=== PATIENT | male | born 1965 | race American Indian/Alaskan Native ===

== ENCOUNTER 2021-09-01 06:29 | Day surgery (SDC) | payer BC ==
[2021-09-01] MEDS ORDERED: LACTATED RINGERS 1,000 ML IV SCH (08:00)
[2021-09-01] MEDS ORDERED: ONDANSETRON 4 MG/2 ML INJ IV PRN (08:30)
[2021-09-01] MEDS ORDERED: HYDROmorphone 1 MG/1 ML INJ IV PRN ×2 (08:30)
--- NOTE | 2021-09-01 08:31 | Anesthesia Day of Surgery ---
Anesthesia Day of Surgery - Day of Surgery Patient Examined: Yes Patient H&P Reviewed: Yes Patient is NPO: Yes
--- NOTE | 2021-09-01 08:32 | Anesthesia Consultation ---
Anesthesia Consult and Med Hx Date of service: 09/01/21 - Airway Anesthetic Teeth Evaluation: Caps (Missing) ROM Head & Neck: Adequate Mental/Hyoid Distance: Adequate Mallampati Class: Class II Intubation Access Assessment: Good - Pre-Operative Health Status ASA Pre-Surgery Classification: ASA1 Proposed Anesthetic Plan: General - Pulmonary Hx Smoking: No Hx Asthma: Yes ( CHILD ONLY) Hx Respiratory Symptoms: No (Recent ear infection on amox) Hx Sleep Apnea: No (DAMIAN PRE SCREEN LOW RISK) - Cardiovascular System Hx Hypertension: No - Central Nervous System Hx Back Pain: Yes (NECK AND BACK PAIN) Hx Psychiatric Problems: No - Hematic Hx Anemia: No - Other Systems Hx Cancer: No
[2021-09-01] MEDS ORDERED: ceFAZolin/STERILE WATER 2 GM/20 ML SYRINGE IV NR (09:04)
[2021-09-01] MEDS ORDERED: ceFAZolin/Water 2 GM/20 ML 2 GM/20 ML SYRINGE IV ONE (09:05)
[2021-09-01] MEDS ORDERED: fentaNYL 100 MCG/2 ML INJ ONE (09:06)
[2021-09-01] MEDS ORDERED: propofoL 200 MG/20 ML VIAL IV ONE ×2 (09:06→09:22)
[2021-09-01] MEDS ORDERED: LIDOCAINE MPF (2%) 20 MG/1 ML VIAL 5 ML ONE (09:06)
[2021-09-01] MEDS ORDERED: dexAMETHasone 20 MG/5 ML VIAL ONE (09:28)
[2021-09-01] MEDS ORDERED: ONDANSETRON 4 MG/2 ML INJ ONE (09:29)
[2021-09-01] MEDS ORDERED: PHENYLEPHRINE/NS 1,000 MCG/10 ML SYRINGE (OR USE) IV ONE (09:36)
--- NOTE | 2021-09-01 09:58 | Operative Report ---
DATE OF SURGERY: 09/01/2021 PREOPERATIVE DIAGNOSES: 1. Elevated PSA. 2. Family history of prostate cancer. POSTOPERATIVE DIAGNOSES: 1. Elevated PSA. 2. Family history of prostate cancer. PROCEDURE: Transrectal ultrasound of the prostate with biopsy. ATTENDING: Elgin Subramanian MD ASSISTANTS: None. ANESTHESIA: MAC. SPECIMENS: Prostate needle biopsies. DRAINS: None. COMPLICATIONS: None. ESTIMATED BLOOD LOSS: 5 mL INDICATIONS FOR PROCEDURE: The patient is a 55-year-old man with a strong family history of prostate cancer and an elevated PSA. He presents today for prostate needle biopsy. DESCRIPTION OF PROCEDURE IN DETAIL: After induction of suitable sedation and proper positioning and preparation in the dorsal lithotomy position, an ultrasound probe was placed into the rectum. A diagnostic ultrasound was performed. The patient's prostate was 21.7 grams. There were no obvious hypoechoic lesions. Once complete, the prostate needle biopsies were then taken in the usual manner. A total of 12 biopsies were taken. The patient tolerated the procedure well and was taken to the recovery room in stable condition. He will return to the office in 7-10 days for pathology review. TID: [id number] RECEIPT: [id number] PATRICIA/CHEYENNE
[2021-09-01] MEDS ORDERED: WATER FOR IRRIG STERILE 1,500 ML BOTTLE IR ONE (10:05)
--- NOTE | 2021-09-01 11:47 | Ultrasound Report ---
Transrectal Ultrasound HISTORY: ELEVATED PSA. TECHNIQUE: Grayscale ultrasound imaging performed. COMPARISON: None FINDINGS: Transrectal ultrasound guidance was provided by radiology during prostate biopsy by urology . Prostate volume measures 21.7 cc. IMPRESSION: Successful prostate biopsy under ultrasound guidance. Signer Name: Navjot Barajas Jr, MD Signed: 09/01/2021 11:43 AM Workstation Name: [id number]
[2021-09-01 12:04] VITALS: BP 140/80
--- NOTE | 2021-09-01 14:16 | Post Anesthesia Evaluation ---
- Post Anesthesia Evaluation Patient Participated: Yes Airway Patent: Yes Stable Respiratory Function: Yes Nausea/Vomiting: No Temp > 96.8F: Yes Pain Manageable: Yes Adequeate Hydration: Yes Anesthesia Complications: No Block Receding Appropriately: Not Applicable Patient on Ventilator: No
== END 2021-09-01 11:40 | disposition home or self-care (01) ==
LOC: OR 06:29
PROVIDERS: ATTEND Urology
DX: R97.20 Elevated prostate specific antigen [PSA] (principal); J45.909 Unspecified asthma, uncomplicated; Z79.899 Other long term (current) drug therapy; Z98.890 Other specified postprocedural states
CPT/HCPCS: 55700; 76872; 88305; J0690; J1100; J1170; J2370; J2405; J2704; J3010; J3490; J7120